=== PATIENT | female | born 1990 | race Caucasian/White ===

== ENCOUNTER → 2016-09-19 | Outpatient (CLI) | payer MEDICARE | LOC: KOH-I 12:58 | DX: R55 Syncope and collapse (principal); R56.9 Unspecified convulsions; R51 Headache | CPT/HCPCS: 70551 ==

== ENCOUNTER → 2020-07-08 | Outpatient (CLI) | payer OTHER | LOC: KOH-I 12:26 | DX: M54.2 Cervicalgia (principal); M50.323 Other cervical disc degeneration at C6-C7 level | CPT/HCPCS: 72050 ==